=== PATIENT | male | born 1970 | race African-American/Black ===

== ENCOUNTER 2020-10-13 01:11 | Emergency (ER) | payer SELFPAY ==
[~2020-10-13] VITALS: Ht 182.9 cm; Wt 127.2 kg
[2020-10-13 01:11] VITALS: BP 150/82
== END 2020-10-13 01:24 | disposition left against medical advice (07) ==
LOC: ER 01:11
DX: R07.89 Other chest pain (principal); Z53.21 Procedure and treatment not carried out due to patient leaving prior to being seen by health care provider
CPT/HCPCS: 93005